=== PATIENT | female | born 1965 | race Caucasian/White ===

== ENCOUNTER → 2017-07-06 | Outpatient (CLI) | payer OTHER ==
[~2017-07-06] MED LIST: AMOX-559 PO; ATOR10TA24 PO; ATOR20TA65 PO; DES100PT PO; DICL-195 PO; DIPH0.5D12 IM; DULO60CA56 PO; EST42T PV; ESTR10TA4 VG; IBU800 PO; LEVO50TA80 PO; LEVO50TA86 PO; MULT1CAP59 PO; NITR-105 PO; PER PO
[2017-07-06 10:51] LABS: LDL CHOLESTEROL 107 mg/dl
== END ==
LOC: LAB 07:24
PROVIDERS: ATTEND Nurse Practitioner Family
DX: E03.9 Hypothyroidism, unspecified (principal); K76.0 Fatty (change of) liver, not elsewhere classified; Z79.899 Other long term (current) drug therapy
CPT/HCPCS: 36415; 82040; 82105; 82247; 82310; 82374; 82435; 82465; 82550; 82565; 82947; 83718; 84075; 84132; 84155; 84295; 84443; 84450; 84460; 84478; 84520

== ENCOUNTER → 2017-10-10 | Outpatient (CLI) | payer OTHER ==
[2017-10-10 11:22] LABS: LDL CHOLESTEROL 94 mg/dl
== END ==
LOC: LAB 09:47
PROVIDERS: ATTEND Nurse Practitioner Family
DX: E03.9 Hypothyroidism, unspecified (principal); M25.50 Pain in unspecified joint; M79.1 Myalgia
CPT/HCPCS: 36415; 82040; 82247; 82310; 82374; 82435; 82465; 82550; 82565; 82947; 83718; 84075; 84132; 84155; 84295; 84443; 84450; 84460; 84478; 84520; 85651; 86038; 86140; 86200; 86430

== ENCOUNTER → 2017-10-13 | Outpatient (CLI) | payer OTHER ==
--- NOTE | 2017-10-13 15:37 | RADIOLOGY IMAGING REPORT ---
FACILITY: [facility] [place] PATIENT NAME: JOSE DSOUZA : [id number] MR: [id number] V: [id number] EXAM DATE: [id number] ORDERING PHYSICIAN: MACARENA ALVAREZ TECHNOLOGIST: Lara Diaz PROCEDURE:BILATERAL DIGITAL SCREENING MAMMOGRAM WITH CAD ASSISTED INTERPRETATION & 3D TOMOSYNTHESIS COMPARISON:None. INDICATIONS:screening baseline FINDINGS: A small amount of fibroglandular tissue is seen throughout the breasts. There is no demonstration of malignant appearing mass, malignant appearing calcifications or other secondary sign of malignancy in either breast. DIAGNOSTIC CATEGORY 1--NEGATIVE. RECOMMENDATIONS: ROUTINE MAMMOGRAM AND CLINICAL EVALUATION. IMPRESSION: BIRADS 1: Negative No significant abnormality is seen. Dictated by: Annia Caraballo M.D. on 10/13/2017 at 15:12 Transcribed by: JANET on 10/13/2017 at 15:19 Approved by: Annia Caraballo M.D. on 10/13/2017 at 15:36 [facility]
--- NOTE | 2017-10-13 16:02 | RADIOLOGY IMAGING REPORT ---
FACILITY: [facility] PATIENT NAME: Melissa Miner : 1965 MR: [id number] V: [id number] EXAM DATE: ORDERING PHYSICIAN: MACARENA ALVAREZ TECHNOLOGIST: Location: [facility] Patient: Melissa Miner : 1965 Visit/Account:[id number] Date of Sevice: 10/13/2017 DEXA Scan Clinical history: Postmenopausal. Comparison: None available. LUMBAR SPINE: The bone mineral density (BMD) measured from L1-L4 correlates with a Z-score -0.9 and a T-score of by 0.7 which is Normal as defined by the World Health Organization. The corresponding risk of fracture in the lumbar spine is 1-2 times increased compared with a young adult reference population. HIP: Bone mineral density (BMD) measured in the Left total hip region correlates with a Z-score -0.9 and a T-score of by 0.9 which is Normal as defined by the World Health Organization. The corresponding ri sk of fracture in the hip is 1-2 times increased compared with a young adult reference population. T score left femoral neck -1.4 Bone mineral density (BMD) measured in the Femoral Neck region measures 0.850 g/cm2. Impression: 1. Lumbar spine: Normal. 2. Left Hip: Normal. 3. Femoral Neck: Bone Mineral Density is 0.850 g/cm2 The next DEXA scan of this patient should include the following sites: L1-L4 and the left hip. FRAX? WHO Fracture Risk Assessment Tool link: <http://www.shef.ac.uk/FRAX/tool.jsp?locationValue=9> PLEASE NOTE: 1) The World Health Organization defines low BMD as follows: T-score Normal > -1 Osteopenia < -1 and > -2.5 Osteoporosis < -2.5 without fractures Established osteoporosis < -2.5 with fractures 2) In general, you may wish to consider: Diagnosis Treatment Follow-up DEXA Normal BMD Prevention 2-3 years Osteopenia Prevention/therapy 1-2 years Osteoporosis Therapy Yearly 3) Fracture risk estimated from the T-score is more accurate for vertebral fractures (often spontane ous) than for hip fractures. Report Dictated By: Annia Caarballo MD at 10/13/2017 3:57 PM Report E-Signed By: Annia Caraballo MD at 10/13/2017 3:58 PM DARRYLN:[email or web address]
== END ==
LOC: MAMO 03:53
PROVIDERS: ATTEND Nurse Practitioner Family
DX: Z13.820 Encounter for screening for osteoporosis (principal); Z12.31 Encounter for screening mammogram for malignant neoplasm of breast; Z78.0 Asymptomatic menopausal state
CPT/HCPCS: 77063; 77067; 77080

== ENCOUNTER → 2017-12-13 | Outpatient (CLI) | payer OTHER | LOC: LAB 16:30 | PROVIDERS: ATTEND Nurse Practitioner Family | DX: R30.0 Dysuria (principal); R35.0 Frequency of micturition; R82.79 Other abnormal findings on microbiological examination of urine | CPT/HCPCS: 81001; 87088 ==

== ENCOUNTER → 2017-12-14 | Outpatient (CLI) | payer OTHER ==
--- NOTE | 2017-12-14 20:40 | RADIOLOGY IMAGING REPORT ---
FACILITY: [facility] PATIENT NAME: Melissa Miner : 1965 MR: [id number] V: [id number] EXAM DATE: ORDERING PHYSICIAN: MACARENA ALVAREZ TECHNOLOGIST: Location: [facility] Patient: Melissa Miner : 1965 Visit/Account:[id number] Date of Sevice: 12/14/2017 ELBOW 2 VIEW LEFT, ELBOW 2 VIEWS RIGHT HISTORY: Bilateral elbow pain. Rheumatoid factor positive. COMPARISON: No prior films available for comparison. FINDINGS: Right side: There is no fracture or joint effusion. There are no significant findings of joint space narrowing. There is minimal irregularity of the medial epicondylar region that is of uncertain signi ficance. Left side: There is no fracture or joint effusion. There are no calcified loose bodies. IMPRESSION: 1. No findings of arthropathy involving the right or left elbow. No findings of significant joint spa ce narrowing or joint effusion. No bony erosions are seen. Report Dictated By: Brandyn German MD at 12/14/2017 8:34 PM Report E-Signed By: Brandyn German MD at 12/14/2017 8:36 PM WSN:[id number]
--- NOTE | 2017-12-14 20:41 | RADIOLOGY IMAGING REPORT ---
FACILITY: [facility] [place] PATIENT NAME: Melissa Miner : 1965 MR: [id number] V: [id number] EXAM DATE: ORDERING PHYSICIAN: MACARENA ALVAREZ TECHNOLOGIST: Location: [facility] Patient: Melissa Miner : 1965 Visit/Account:[id number] Date of Sevice: 12/14/2017 ELBOW 2 VIEW LEFT, ELBOW 2 VIEWS RIGHT HISTORY: Bilateral elbow pain. Rheumatoid factor positive. COMPARISON: No prior films available for comparison. FINDINGS: Right side: There is no fracture or joint effusion. There are no significant findings of joint space narrowing. There is minimal irregularity of the medial epicondylar region that is of uncertain signi ficance. Left side: There is no fracture or joint effusion. There are no calcified loose bodies. IMPRESSION: 1. No findings of arthropathy involving the right or left elbow. No findings of significant joint spa ce narrowing or joint effusion. No bony erosions are seen. Report Dictated By: Brandyn German MD at 12/14/2017 8:34 PM Report E-Signed By: Brandyn German MD at 12/14/2017 8:36 PM WSN:[id number]
--- NOTE | 2017-12-14 20:46 | RADIOLOGY IMAGING REPORT ---
FACILITY: [facility] PATIENT NAME: Melissa Miner : 1965 MR: [id number] V: [id number] EXAM DATE: ORDERING PHYSICIAN: MACARENA ALVAREZ TECHNOLOGIST: Location: [facility] [place] Patient: Melissa Miner : 1965 Visit/Account:[id number] Date of Sevice: 12/14/2017 KNEE 1 OR 2 VIEW BILATERAL HISTORY: Joint pain. Positive rheumatoid factor. COMPARISON: No prior films available for comparison. FINDINGS: Right side: Bony mineralization may be mildly decreased. There is a joint effusion. There may be mil d diffuse joint space narrowing. There is no chondrocalcinosis. There are no calcified loose bodies. Left side: Bony mineralization may be slightly decreased. There may be subtle diffuse joint space adriano rowing, but there is no chondrocalcinosis and there are no calcified loose bodies. There may be a sma ll joint effusion. IMPRESSION: 1. Bony mineralization is mildly decreased in both knees. There are subtle findings of joint space na rrowing and there are bilateral joint effusions. Report Dictated By: Brandyn German MD at 12/14/2017 8:40 PM Report E-Signed By: Brandyn German MD at 12/14/2017 8:41 PM WSN:[id number]
--- NOTE | 2017-12-14 20:47 | RADIOLOGY IMAGING REPORT ---
FACILITY: [facility] PATIENT NAME: Melissa Miner : 1965 MR: [id number] V: [id number] EXAM DATE: ORDERING PHYSICIAN: MACARENA ALVAREZ [place]CHNOLOG[place]: [place] [facility] [place] : 1965 Visit/Account:[id number] Date of Sevice: 12/14/2017 ANKLE 2 VIEW LEFT, ANKLE 2 VIEW RIGHT HISTORY: Bilateral ankle pain. Positive rheumatoid factor. COMPARISON: No prior films available for comparison. FINDINGS: Right side: There is no fracture or dislocation involving the right ankle. There may be subtle findi ngs of joint space narrowing anteriorly in the tibial talar joint but the ankle mortise is preserved. There is no joint effusion and there are no bony erosions. Left side: There is no fracture or dislocation involving the left ankle. There is no joint effusion a nd there are no bony erosions. IMPRESSION: 1. There are potentially minimal findings of joint space narrowing in the anterior aspect of the righ t tibial talar joint. There are no findings of a joint effusion or bony erosions however. Report Dictated By: Brandyn German MD at 12/14/2017 8:41 PM Report E-Signed By: Brandyn German MD at 12/14/2017 8:43 PM WSN:[id number]
--- NOTE | 2017-12-14 20:47 | RADIOLOGY IMAGING REPORT ---
FACILITY: [facility] PATIENT NAME: Melissa Miner : 1965 MR: [id number] V: [id number] EXAM DATE: ORDERING PHYSICIAN: MACARENA ALVAREZ TECHNOLOGIST: Location: Patient: Melissa Miner : 1965 Visit/Account:[id number] Date of Sevice: 12/14/2017 ANKLE 2 VIEW LEFT, ANKLE 2 VIEW RIGHT HISTORY: Bilateral ankle pain. Positive rheumatoid factor. COMPARISON: No prior films available for comparison. FINDINGS: Right side: There is no fracture or dislocation involving the right ankle. There may be subtle findi ngs of joint space narrowing anteriorly in the tibial talar joint but the ankle mortise is preserved. There is no joint effusion and there are no bony erosions. Left side: There is no fracture or dislocation involving the left ankle. There is no joint effusion a nd there are no bony erosions. IMPRESSION: 1. There are potentially minimal findings of joint space narrowing in the anterior aspect of the righ t tibial talar joint. There are no findings of a joint effusion or bony erosions however. Report Dictated By: Brandyn German MD at 12/14/2017 8:41 PM Report E-Signed By: Brandyn German MD at 12/14/2017 8:43 PM WSN:[id number]
--- NOTE | 2017-12-14 20:49 | RADIOLOGY IMAGING REPORT ---
FACILITY: [facility] [place] PATIENT NAME: Melissa Miner : 1965 MR: [id number] V: [id number] EXAM DATE: ORDERING PHYSICIAN: MACARENA ALVAREZ TECHNOLOGIST: Location: [facility] Patient: Melissa Minre : 1965 Visit/Account:[id number] Date of Sevice: 12/14/2017 WRIST BILAT 1 OR 2 VIEWS HISTORY: Bilateral wrist pain. Positive rheumatoid factor. COMPARISON: No prior films available for comparison. FINDINGS: Right side: Bony mineralization is normal. Subtle irregularity of the trapezium does not have the ap pearance of bony erosions. There are no bony erosions involving the ulnar styloid process or metacarp al heads so far as visualized. There is no significant joint space narrowing. Carpal bone alignment i s normal. There is no chondrocalcinosis. Left side: Bony mineralization is normal. There are no findings of joint space narrowing. No bony ero sions are seen. IMPRESSION: 1. No findings of bony erosions or significant joint space narrowing to suggest carpal crowding in th e right or left wrist. Report Dictated By: Brandyn German MD at 12/14/2017 8:43 PM Report E-Signed By: Brandyn German MD at 12/14/2017 8:45 PM WSN:[id number]
== END ==
LOC: RAD 17:45
PROVIDERS: ATTEND Nurse Practitioner Family
DX: M85.80 Other specified disorders of bone density and structure, unspecified site (principal); M25.462 Effusion, left knee; M25.461 Effusion, right knee; M25.532 Pain in left wrist; M25.531 Pain in right wrist; M25.522 Pain in left elbow; M25.521 Pain in right elbow; M25.572 Pain in left ankle and joints of left foot; M25.571 Pain in right ankle and joints of right foot

== ENCOUNTER → 2018-04-04 | Outpatient (REF) ==
--- NOTE | 2018-04-04 10:26 | RADIOLOGY IMAGING REPORT ---
FACILITY: [facility] PATIENT NAME: Melissa Miner : 1965 MR: [id number] V: [id number] EXAM DATE: ORDERING PHYSICIAN: SULEMAN AGUIAR TECHNOLOGIST: Location: [facility] Patient: Melissa Miner : 1965 Visit/Account:[id number] Date of Sevice: 04/04/2018 PA chest, one view. HISTORY: Health examination of defined subpopulation. COMPARISON: 03/22/2017. The heart and mediastinum are unremarkable. Pulmonary vessels are unremarkable. The lungs are clear . The pleural surfaces are unremarkable. No pneumothorax. The bones are unremarkable. IMPRESSION: No evidence of acute cardiopulmonary disease. Report Dictated By: Genaro Felton MD at 04/04/2018 10:17 AM Report E-Signed By: Genaro Felton MD at 04/04/2018 10:22 AM WSN:[email or web address]
== END ==
LOC: RAD 09:45
PROVIDERS: ATTEND Physician Assistant Medical
DX: Z02.9 Encounter for administrative examinations, unspecified (principal)
CPT/HCPCS: 71045

== ENCOUNTER → 2018-11-27 | Outpatient (CLI) | payer OTHER ==
[~2018-11-27] MED LIST changes: -DIPH0.5D12 IM; +DIPH0.5S2 IM
[2018-11-27 16:34] LABS: PLATELET COUNT, AUTOMATED 227 K/uL (150-450)
[2018-11-27 16:49] LABS: LDL CHOLESTEROL 101 mg/dl
== END ==
LOC: LAB 15:46
PROVIDERS: ATTEND Nurse Practitioner Family
DX: E78.5 Hyperlipidemia, unspecified (principal); K76.0 Fatty (change of) liver, not elsewhere classified; E03.9 Hypothyroidism, unspecified; R10.9 Unspecified abdominal pain; R10.12 Left upper quadrant pain
CPT/HCPCS: 36415; 82040; 82150; 82247; 82310; 82374; 82435; 82465; 82565; 82947; 83690; 83718; 84075; 84132; 84155; 84295; 84443; 84450; 84460; 84478; 84520; 85025; 85651; 86140

== ENCOUNTER → 2019-01-09 | Outpatient (CLI) | payer OTHER ==
[2019-01-09 13:46] LABS: PLATELET COUNT, AUTOMATED 176 K/uL (150-450)
[2019-01-09 13:50] LABS: INR 0.97
== END ==
LOC: LAB 13:19
PROVIDERS: ATTEND Nurse Practitioner Family
DX: R94.5 Abnormal results of liver function studies (principal); R10.12 Left upper quadrant pain; K21.9 Gastro-esophageal reflux disease without esophagitis; K59.00 Constipation, unspecified
CPT/HCPCS: 36415; 82040; 82105; 82247; 82310; 82374; 82435; 82565; 82947; 84075; 84132; 84155; 84295; 84450; 84460; 84520; 85025; 85610

== ENCOUNTER → 2019-02-14 | Outpatient (CLI) | payer OTHER ==
--- NOTE | 2019-02-14 10:50 | RADIOLOGY IMAGING REPORT ---
FACILITY: [facility] PATIENT NAME: Melissa Miner : 1965 MR: [id number] V: [id number] EXAM DATE: ORDERING PHYSICIAN: LOREN CEBALLOS TECHNOLOGIST: Location: [facility] [place] Patient: Melissa Miner : 1965 Visit/Account:[id number] Date of Sevice: 02/14/2019 EXAMINATION: Abdominal ultrasound complete HISTORY: Fatty liver, family history of liver and pancreatic cancer COMPARISON: MR the abdomen November 16, 2016 FINDINGS: Gallbladder: No stones, wall thickening, pericholecystic fluid or sonographic Kilgore sign. Liver: There are two cysts identified in the liver one in the right lobe measures 1 cm in diameter on e in the left lobe also measures 1 cm in diameter. Common duct: Normal measuring 2.8 mm. Pancreas: Negative. Spleen: Normal in size and echogenicity measuring eight cm in length. Kidneys: Normal in size and echogenicity, the right measures 10.3 cm in length, and the left 10.6 cm . No hydronephrosis. Upper abdominal aorta and IVC: Negative. Ascites: None. IMPRESSION: There are two small hepatic cysts otherwise unremarkable abdomen ultrasound Report Dictated By: Annia Caraballo MD at 02/14/2019 10:39 AM Report E-Signed By: Annia Caraballo MD at 02/14/2019 10:41 AM WSN:[email or web address]
== END ==
LOC: US 02:07
PROVIDERS: ATTEND Nurse Practitioner Family
DX: K76.89 Other specified diseases of liver (principal)
CPT/HCPCS: 76700